=== PATIENT | male | born 1940 | race Caucasian/White ===

== ENCOUNTER 2016-07-24 13:23 | Day surgery (SDC) | payer MEDICARE, OTHER ==
[~2016-07-24] VITALS: Ht 180.3 cm; Wt 104.0 kg
[~2016-07-24 13:23] MED LIST: ALPH50CA PO; AMLO10TA3 PO; ASPI-973 PO; ATEN50TA PO; BUDE8.435 NS; CHOL200025 PO; INSU100I13 SUBQ; INSU200I SQ; IRBE300T42 PO; LEVO50TA6 PO; METF500T4 PO; MULT-1018 PO; OLP.1OP5 AFFECT_EYE; PANT40TA3 PO; ROSU5TAB PO; Sodium Biphos-Phos 133 mL Enema RECTAL PRN; Sodium Chloride LOK Flush 10 mL Syringe IV PRN; TERA5CAP6 PO; VIT1TABL83 PO; fentaNYL-PF 50 mCg/mL 2 mL Inj IVPUSH PRN
[2016-07-24 13:48] VITALS: BP 136/75; PULSE 62; RESP 16; O2SAT 98
[2016-07-24] MEDS: 0.9% Sodium Chloride 1,000 ML IV SCH ×2 (14:01→14:09)
[2016-07-24 15:30] VITALS: BP 139/76; PULSE 68; RESP 14; O2SAT 96
[2016-07-24 15:40] VITALS: BP 127/66; PULSE 68; RESP 14; O2SAT 96
[2016-07-24 15:50] VITALS: BP 119/65; PULSE 65; RESP 16; O2SAT 96
[2016-07-24 16:00] VITALS: BP 145/71; PULSE 57; RESP 14; O2SAT 95
--- NOTE | 2016-07-24 16:42 | ENDO ---
[address] [address] ENDOSCOPY PROCEDURE PATIENT: MARIN JOHNSON : 1940 MR#: [id number] ADMIT: 07/24/2016 JOB ID: [id number] DATE OF SERVICE: 07/24/2016 PREPROCEDURE DIAGNOSIS: Personal history of colon polyps, descending colon submucosal mass. PROCEDURE: Colonoscopy with biopsies. ENDOSCOPIST: Bharat Hernandez MD MEDICATIONS: Versed 4 mg, fentanyl 75 mcg in incremental doses. INDICATIONS: The patient is a 75-year-old man who underwent colonoscopy in November [address] Hollis, and during the procedure he had a total of nine polyps removed, all of which were tubular adenomas. At 45 cm from the anal verge, he also had suggestion of a submucosal colon mass. Biopsies were obtained which showed a scar associated with prior mucosal injury, but there was no mucosal abnormality. A CT scan of the abdomen and pelvis was then obtained which did not describe any abnormality, but upon my review I felt that I could see a fat density lesion corresponding to the area of interest, most likely consistent with a submucosal lipoma. He had no complaints of obstructive symptoms or blood in the stool. After discussion of the risks and benefits, he agreed to proceed with repeat colonoscopy because of the number of polyps during the prior procedure as well as to reevaluate the submucosal abnormality. FINDINGS: There was a single 2 mm cecal polyp which was removed with cold forceps. No other polyps were seen. The area of prior tattoo with submucosal mass was redemonstrated again and photographed in multiple positions. The mucosa was completely normal over the area. I elected not to take another biopsy. The remainder of the colonoscopy was normal. DESCRIPTION OF PROCEDURE: Procedural sedation was achieved. After digital rectal exam, the PC H 180 AL colonoscope was inserted and passed under visualization until the ileocecal valve and appendiceal orifice were visualized and photo documented. The terminal ileum was intubated for approximately 5 cm, which was normal. In the cecum, just opposite the ileocecal valve, there was a 2 mm rounded polyp which was removed with cold forceps and sent for permanent pathology. The scope was then withdrawn and carefully retroflexed in the rectum. At 50 cm from the anal verge, the prior tattooed area was visualized. The tattoo ink was visible both proximal and distal to the lesion of prior interest. Again, the mucosa was completely smooth but there was a submucosal bulging into the lumen which was very soft and nonobstructive. I elected not to biopsy that area. The remainder of the procedure was normal. The scope was withdrawn and the procedure terminated. He tolerated the entire procedure well. 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 The patient wishes to undergo observation as opposed to resection. For colon screening, I recommend repeat colonoscopy in three years.
--- NOTE | 2016-07-26 13:53 | PATH ---
SURGICAL PATHOLOGY Attending Physician:Eva Sellers CASE STATUS: Signed Out PATIENT NAME: MARIN JOHNSON JR PID: [id number] : 1940 DATE COLLECTED:07/24/2016 00:00 SPECIMEN: Colon, Polyp CLINICAL HISTORY: 1). CECAL POLYP FINAL DIAGNOSIS: 1.CECAL POLYP: TUBULAR ADENOMA. ICD10 D12.0 GROSS DESCRIPTION: Received in formalin, labeled with the patient' s name and "cecal polyp", is one fragment of moffett, soft tissue measuring 0.2 x 0.1 x 0.1 cm. The fragment is totally submitted in one cassette. ([id number]) MICRO DESCRIPTION: See diagnosis. ICD-9 CODES: CPT CODES: 1: 95453 Electronically Signed Out Blaine Mejia MD [facility] Pathology [facility] [address], [place] [address] Technical component performed at [facility], [facility] [address], [place], [address]
== END 2016-07-24 23:59 | disposition home or self-care (01) ==
LOC: END 13:23
PROVIDERS: ATTEND Student in an Organized Health Care Education/Training Program
DX: Z12.11 Encounter for screening for malignant neoplasm of colon (principal); D12.0 Benign neoplasm of cecum; Z86.010 Personal history of colon polyps; I10 Essential (primary) hypertension; E78.5 Hyperlipidemia, unspecified; E03.9 Hypothyroidism, unspecified; K21.9 Gastro-esophageal reflux disease without esophagitis; I34.8 Other nonrheumatic mitral valve disorders; G47.30 Sleep apnea, unspecified; R00.1 Bradycardia, unspecified; G47.00 Insomnia, unspecified; E11.42 Type 2 diabetes mellitus with diabetic polyneuropathy; I69.359 Hemiplegia and hemiparesis following cerebral infarction affecting unspecified side; Z79.4 Long term (current) use of insulin; Z79.84 Long term (current) use of oral hypoglycemic drugs
CPT/HCPCS: 45380; 99153; G0500; J7030

== ENCOUNTER 2016-08-12 04:02 | Emergency (ER) | payer MEDICARE, OTHER ==
[~2016-08-12] VITALS: Ht 180.3 cm; Wt 103.6 kg
[~2016-08-12 04:02] MED LIST changes: -METF500T4 PO; -ROSU5TAB PO; -Sodium Biphos-Phos 133 mL Enema RECTAL PRN; -Sodium Chloride LOK Flush 10 mL Syringe IV PRN; -fentaNYL-PF 50 mCg/mL 2 mL Inj IVPUSH PRN
[2016-08-12 04:09] VITALS: BP 144/69; PULSE 65; RESP 18; O2SAT 97
--- NOTE | 2016-08-12 04:37 | ED.REPORT ---
HPI-Extremity Problem Lower Date of Service Aug 12, 2016 ED Provider: Mikhail Wilhelm MD 76 y/o male on Aspirin with a hx of HTN and DM presents to the ED complaining of left 4th toe laceration yesterday. The pt states he hit his foot on a metal door stop. He denies pain in left foot. The pt is concerned the toe may be broken and that the bleeding is not stopping. Nursing Notes Stated Complaint: TOE PAIN Chief Complaint: Extremity Trauma Nursing Notes Reviewed: Yes Allergies: Coded Allergies: Iodinated Contrast- Oral and IV Dye (Verified Allergy, Mild, Dizziness, elevated BP, 08/12/16) Pt reports being dizzy and having HBP after oral contrast. Was given benadryl and sent to ER. Unknown facility. kld metformin (Verified Allergy, Mild, 08/12/16) codeine (Verified Adverse Reaction, Severe, FINGERS NUMB,BLISTERS, 08/12/16) adhesive tape (Verified Adverse Reaction, Unknown, UNKNOWN, 08/12/16) ezetimibe (Verified Adverse Reaction, Unknown, 07/24/16) MUSCLE ACHES Scheduled Alpha Lipoic Acid (Alpha Lipoic Acid) 50 Mg Capsule 60 MG PO DAILY Amlodipine (Amlodipine) 10 Mg Tablet 10 MG PO DAILY Aspirin (Aspirin) 81 Mg Tablet 81 MG PO DAILY Atenolol (Atenolol) 50 Mg Tablet 50 MG PO DAILY Budesonide (Budesonide) 32 Mcg/Actuation [place].pump 8.43 ML NS DAILY Cholecalciferol (Vitamin D3) (Vitamin D3) 2,000 Unit Tablet 2,000 UNIT PO DAILY Insulin Glargine (Lantus U100 Solostar Insulin Pen) 100 Unit/1 Ml Insuln.pen 35 UNIT SUBQ DAILY Insulin Lispro (Humalog Kwikpen) 200 Unit/Ml (3 Ml) Insuln.pen 5 UNIT SQ TIDAC Irbesartan (Avapro) 300 Mg Tablet 300 MG PO DAILY Levothyroxine (Levothyroxine) 50 Mcg Tablet 50 MCG PO DAILY Multivitamin (Multi Vitamin Daily) 1 Each Tablet 1 EACH PO DAILY Olopatadine (Patanol) 5 Ml Soln 1 DROP AFFECT_EYE BID Pantoprazole DR (Pantoprazole DR) 40 Mg Tablet.dr 40 MG PO BID Terazosin (Terazosin) 5 Mg Capsule 5 MG PO HS Vit B Comp/C/FA/Iron/Vit E (Vitamin B Complex Tablet) 1 Each Tablet 1 EACH PO DAILY General Time Seen by MD: 04:29 Chief Complaint Toe injury left 4 Hx Obtained From: Patient Arrived By: Walk-in Onset Occurred: Yesterday Symptom Duration: Since onset Location: : Toe left 4 Severity: Current: No pain currently Severity: Maximum: Mild Recent Healthcare: No recent doctor visit Similar Sx Previous: No Past Medical History Past Medical History AAA GERD SKIN CANCER Reports: Diabetes mellitus, Hypertension Past Surgical History CARPEL TUNNEL RIGHT WRIST Smoking History Former Smoker Ambulatory Status Independent Review of Systems Reports: left 4th toe laceration Musculoskeletal: Denies: Extremity pain (left foot) Complete sys rev & neg: except as marked. Physical Exam Initial Vital Signs Vital Signs (First) Date Time Temp Pulse Resp B/P Pulse Ox O2 Delivery O2 Flow Rate FiO2 08/12/16 04:09 36.8 65 18 144/69 97 Room Air Initial VS: Reviewed, Vital signs normal Head / Eyes: Atraumatic, Normocephalic Neck: Supple, Non-tender, Full range of motion Respiratory: No respiratory distress Cardiovascular: Regular rate & rhythm, Intact distal pulses Upper Extremities: Vascular intact, Neuro intact, No swelling, No tenderness Skin: Warm, Dry, No cyanosis Neurologic: Alert, Oriented, Nonfocal Lower Extremity / Pelvis / MS: Atraumatic, Full range of motion, No swelling, No deformity, Neurologic intact, Vascular intact Ankle / Foot: Atraumatic, Full range of motion, No deformity, Neurologic intact , Vascular intact Left Great Toe: Positive: Swelling present... (Mild), Negative: Deformity present, Tenderness present... Skin avulsion on top of 4th toe. General/Constitutional: Awake, Alert, No acute distress, Cooperative Re-Eval/Medical Decision Med Decision/Clinical Course 76-year-old male with a small skin avulsion/abrasion on his toe which would not stop bleeding. LET was applied and the bleeding stopped. There is no palpable bony tenderness or deformity so x-ray was not done. Source of Hx: Old records Re-Evaluation/Progress : Time of Eval: 05:48 Re-Evaluation/Progress Note: Rechecked pt. Discussed diagnosis and plan to discharge. Pt understands and agrees with the plan. F/U instructions and RTER warning given. All questions addressed. Counseled Regarding: Diagnosis, Need for follow-up, When/why to return to ED Discharge & Departure Impression: Primary Impression: Avulsion of skin of toe Encounter type: initial encounter Qualified Code: S91.109A - Unspecified open wound of unspecified toe(s) without damage to nail, initial encounter Disposition: Home Discharge Condition All VS Reviewed: Yes Condition: Stable Patient Instructions: Abrasion (ED) Additional Instructions: Daily dressing change with antibiotic ointment and Band-Aid. You may apply the vasoconstrictor once or twice more if needed. Referrals: Maritza Cornelius (PCP) Scribe Attestation Portions of this note were transcribed by Jeremie Robles. I, , personally performed the history, physical exam and medical decision- making;I reviewed and confirmed the accuracy of the information in the transcribed note. Signed by Remy Azul. 08/12/16 06:06 copies to: Maritza Cornelius Howard L MD Aug 12, 2016 04:37 Jeremie Robles Aug 12, 2016 04:51
[2016-08-12] MEDS ORDERED: Lidocaine-Epi-Tetracaine Solution 3 mL Syringe TOPICAL ONE (04:50)
[2016-08-13] MEDS ORDERED: CRB200T PO (10:44)
== END 2016-08-12 06:05 | disposition home or self-care (01) ==
LOC: SED 04:02
DX: S91.105A Unspecified open wound of left lesser toe(s) without damage to nail, initial encounter (principal); W22.8XXA Striking against or struck by other objects, initial encounter; Y93.89 Activity, other specified; Y92.89 Other specified places as the place of occurrence of the external cause; Y99.8 Other external cause status; I10 Essential (primary) hypertension; E11.9 Type 2 diabetes mellitus without complications; K21.9 Gastro-esophageal reflux disease without esophagitis; C44.90 Unspecified malignant neoplasm of skin, unspecified; Z79.82 Long term (current) use of aspirin; Z79.4 Long term (current) use of insulin; Z87.891 Personal history of nicotine dependence; Z88.5 Allergy status to narcotic agent; Z88.8 Allergy status to other drugs, medicaments and biological substances; Z91.048 Other nonmedicinal substance allergy status; Z91.041 Radiographic dye allergy status
CPT/HCPCS: 99283; G0463

== ENCOUNTER 2016-08-13 03:42 | Emergency (ER) | payer MEDICARE, OTHER ==
[~2016-08-13] VITALS: Ht 180.3 cm; Wt 101.8 kg
[2016-08-13 03:49] VITALS: BP 157/64; PULSE 68; RESP 18; O2SAT 97
--- NOTE | 2016-08-13 04:16 | ED.REPORT ---
HPI-General Illness Date of Service Aug 13, 2016 ED Provider: Mikhail Wilhelm MD Pt is a 76 year old male with a history of HTN and DM who presents to the ED complaining of neck pain. He c/o associated headache, right-sided ear pain, right-sided head pain, and difficulty sleeping secondary to the pain. He denies any other symptoms. Nursing Notes Stated Complaint: NECK PAIN Chief Complaint: General Complaint Nursing Notes Reviewed: Yes Allergies: Coded Allergies: Iodinated Contrast- Oral and IV Dye (Verified Allergy, Mild, Dizziness, elevated BP, 08/12/16) Pt reports being dizzy and having HBP after oral contrast. Was given benadryl and sent to ER. Unknown facility. kld metformin (Verified Allergy, Mild, 08/12/16) codeine (Verified Adverse Reaction, Severe, FINGERS NUMB,BLISTERS, 08/12/16) adhesive tape (Verified Adverse Reaction, Unknown, UNKNOWN, 08/12/16) ezetimibe (Verified Adverse Reaction, Unknown, 07/24/16) MUSCLE ACHES Uncoded Allergies: STATIN DRUGS (Allergy, Unknown, 08/13/16) Scheduled Alpha Lipoic Acid (Alpha Lipoic Acid) 50 Mg Capsule 60 MG PO DAILY Amlodipine (Amlodipine) 10 Mg Tablet 10 MG PO DAILY Aspirin (Aspirin) 81 Mg Tablet 81 MG PO DAILY Atenolol (Atenolol) 50 Mg Tablet 50 MG PO DAILY Cholecalciferol (Vitamin D3) (Vitamin D3) 2,000 Unit Tablet 2,000 UNIT PO DAILY Insulin Glargine (Lantus U100 Solostar Insulin Pen) 100 Unit/1 Ml Insuln.pen 35 UNIT SUBQ DAILY Insulin Lispro (Humalog Kwikpen) 200 Unit/Ml (3 Ml) Insuln.pen 5 UNIT SQ TIDAC Irbesartan (Avapro) 300 Mg Tablet 300 MG PO DAILY Levothyroxine (Levothyroxine) 50 Mcg Tablet 50 MCG PO DAILY Multivitamin (Multi Vitamin Daily) 1 Each Tablet 1 EACH PO DAILY Olopatadine (Patanol) 5 Ml Soln 1 DROP AFFECT_EYE BID Pantoprazole (Pantoprazole DR) 40 Mg Tablet.dr 40 MG PO BID Terazosin (Terazosin) 5 Mg Capsule 5 MG PO HS Vit B Comp/C/FA/Iron/Vit E (Vitamin B Complex Tablet) 1 Each Tablet 1 EACH PO DAILY Scheduled PRN Carbamazepine (Carbamazepine) 200 Mg Tablet 200 MG PO BID PRN PRN For Pain General Time Seen by MD: 03:50 Chief Complaint Other (Neck pain) Hx Obtained From: Patient Arrived By: Walk-in Sudden in Onset?: Yes Onset Occurred: 5 - 8 hours ago Symptom Duration: Since onset Location: : Neck Quality: Painful Severity: Current: Moderate Severity: Maximum: Moderate Recent Healthcare: Recent doctor visit Similar Sx Previous: No Past Medical History Past Medical History AAA GERD SKIN CANCER Right rotator cuff tear Great toes fused Reports: Diabetes mellitus, Hypertension Past Surgical History CARPEL TUNNEL - RIGHT WRIST Left shoulder Prostate Smoking History Former Smoker (1964) Social History Alcohol Use: Denies alcohol use Drug Use: Denies drug use Ambulatory Status Independent Review of Systems + Head pain + Difficulty sleeping Full Review of Systems Ears / Nose / Throat: Reports: Earache right Musculoskeletal: Reports: Neck pain Neurologic: Reports: Headache Complete sys rev & neg: except as marked. Physical Exam Vital Signs Vital Signs Date Time Temp Pulse Resp B/P Pulse Ox O2 Delivery O2 Flow Rate FiO2 08/13/16 11:04 36.1 65 151/80 97 Room Air 08/13/16 08:00 65 16 148/56 97 Room Air 08/13/16 03:49 36.6 68 18 157/64 97 Room Air Initial VS: Reviewed Head / Eyes: Atraumatic, Normocephalic Respiratory: Breath sounds normal, Clear to auscultation, No respiratory distress Cardiovascular: Regular rate & rhythm, Heart sounds normal, Intact distal pulses Abdomen / GI: Soft, Non-tender Extremities: Vascular intact, Neuro intact Skin: Warm, Dry, No cyanosis Neurologic: Alert, Oriented, Nonfocal Psychiatric: Mood/affect normal, Behavior normal General/Constitutional: Awake, Alert, Cooperative ENT: Tympanic membs NL Normal nontender temporal arteries. Non-tender mastoid bilaterally. Neck: Supple Area of tenderness just posterior to the right sternocleidomastoid muscle. Trigger point right at the based of the skull to the right of the midline. Procedures Occipital nerve injection: 5 cc of .5% marking injected with pt's consent and sterile conditions. Re-Eval/Medical Decision Med Decision/Clinical Course Dr. Wilhelm: This patient's workup was initiated by me. He was given carbamazepine and an MRI was ordered. His care is being turned over at change of shift to Dr. Alex Martinez. Addendum by Dr. Martinez: This is a 76-year-old male with an intermittent shooting pain in the right side of the neck was turned over to me at change of shift. I personally interviewed and examined the patient. He does describe this very shocklike sensation on the right side. While in the face and the classic cardiac panel distribution, and is more the neck. I agree that he does not have any temporal artery tenderness. He has no neurologic exam findings of numbness or weakness. The shocklike discomfort he received a dose of carbamazepine, which she reports may have helped but is not definite. He is never any pending an MRI of the neck. The MRI was negative. On reexamination he feels somewhat better. He is not currently having any discomfort. He clinically appears well, is neurologic exam is normal. Not finding evidence of a clear dangerous etiology. A definitive cause has not been established. Routine return precautions reviewed. Patient's discharged in good condition. He is willing to continue a trial of carbamazepine which I think is reasonable, up to 200 mg twice a day. And he has follow-up planned with his providers. Source of Hx: Old records Time of Eval: 04:25 Re-Evaluation/Progress Note: Pt rechecked. Informed pt of plan for treatment with an occipital nerve injection. Pt understands and agrees with plan for treatment. All questions were answered. Time of Eval: 05:07 Patient Status: Condition unchanged Re-Evaluation/Progress Note: Pt rechecked. Pt reports that he has not experienced improvement. All questioned answered. Time of Eval: 05:10 Re-Evaluation/Progress Note: Pt rechecked. Informed pt of plan for treatment. Pt understands and agrees with plan for treatment. All questions were addressed. Differential Diagnosis: Negative: Abdominal pain, Acute coronary syndrome, Diabetes mellitus, G-tube repair/replacement, Influenza, Laceration, Malingering , Pneumonia Counseled Regarding: Diagnosis, Need for follow-up, When/why to return to ED Discharge & Departure Primary Impression: Neck pain Discharge Condition All VS Reviewed: Yes Condition: Stable Referrals: Maritza Cornelius (PCP) Scribe Attestation Portions of this note were transcribed by Franci Tuttle. I, Dr. Wilhelm personally performed the history, physical exam and medical decision-making; I reviewed and confirmed the accuracy of the information in the transcribed note. Signed by: Remy Crespo, 08/13/16 and 05:50. copies to: Maritza Cornelius Howard L MD Aug 13, 2016 04:15 Franci Seo Aug 13, 2016 04:22 Alex Martinez MD Aug 13, 2016 11:46
[2016-08-13] MEDS ORDERED: Bupivacaine-MPF 0.5% 30 mL Inj ONE (04:21)
[2016-08-13] MEDS ORDERED: carBAMazepine 200 mg Tablet PO ONE (05:10)
[2016-08-13 08:00] VITALS: BP 148/56; PULSE 65; RESP 16; O2SAT 97
--- NOTE | 2016-08-13 10:04 | DRSVH ---
PROCEDURE: MRI CERVICAL SPINE WITHOUT CONTRAST ([id number]) INDICATIONS: C1 distribution severe pain TECHNIQUE: Noncontrast sagittal T1 spin echo and T2 fast spin echo, sagittal STIR, foraminal oblique sagittal T2 fast spin echo, and axial gradient echo or T2 fast spin echo through the cervical spine. COMPARISON: [facility], MR, MR CERVICAL SPINE WO CON, 05/21/2016 and 02/22/2015. FINDINGS: Image quality: Excellent. Alignment and Curvature: There is normal bony alignment. Bone Marrow: Marrow demonstrates normal overall signal. Spinal Cord: Visualized spinal cord has normal size and signal. No cerebellar tonsillar herniation. Paraspinous Soft Tissues: No paravertebral masses. Prevertebral soft tissues are normal in thicknes s. C2-C3: Normal appearance. C3-C4: Mild disc bulge minimally deforms the left paracentral spinal cord. There is no spinal cord ed anna. Uncovertebral joint hypertrophy. Minimal right neural foraminal narrowing. The left neural iris en and central spinal canal are patent. C4-C5: Minimal/mild posterior disc bulge. Uncovertebral joint hypertrophy. Minimal/mild bilateral hal ral foraminal narrowing. Patent central spinal canal.. C5-C6: Minimal/mild posterior disc bulge. Uncovertebral joint hypertrophy. Minimal/mild bilateral ne ural foraminal narrowing. Patent central spinal canal. C6-C7: Mild posterior disc bulge. Uncovertebral joint hypertrophy. Minimal/mild bilateral neural fora rodolfo narrowing. Patent central spinal canal. C7-T1: Normal appearance. IMPRESSION: 1. No significant change since the previous study. Mild degenerative change is less than expected for the patient's age causing multilevel minimal/mild neural foraminal narrowing. The central spinal can al is patent. 2. No radiographic etiology for the patient's increasing pain. Dictated by: Riki Carlin M.D. on 08/13/2016 at 9:36 Approved by: Riki Carlin M.D. on 08/13/2016 at 9:56
[2016-08-13] MEDS ORDERED: CRB200T PO (10:44)
[2016-08-13 11:04] VITALS: BP 151/80; PULSE 65; O2SAT 97
== END 2016-08-13 11:02 | disposition home or self-care (01) ==
LOC: SED 03:42
DX: M54.2 Cervicalgia (principal); R51 Headache; H92.01 Otalgia, right ear; I10 Essential (primary) hypertension; E11.9 Type 2 diabetes mellitus without complications; K21.9 Gastro-esophageal reflux disease without esophagitis; Z79.82 Long term (current) use of aspirin; Z79.84 Long term (current) use of oral hypoglycemic drugs; Z87.891 Personal history of nicotine dependence; Z88.5 Allergy status to narcotic agent; Z88.8 Allergy status to other drugs, medicaments and biological substances; Z91.041 Radiographic dye allergy status; Z91.048 Other nonmedicinal substance allergy status; Z79.4 Long term (current) use of insulin

== ENCOUNTER 2016-09-14 17:20 | Emergency (ER) | payer MEDICARE, OTHER ==
[~2016-09-14] VITALS: Ht 180.3 cm; Wt 103.6 kg
[~2016-09-14 17:20] MED LIST changes: -BUDE8.435 NS; +CRB200T PO
[2016-09-14 17:40] VITALS: BP 153/70; PULSE 63; RESP 18; O2SAT 97
--- NOTE | 2016-09-14 18:40 | DRSVH ---
PROCEDURE: X-RAY LEFT FOOT COMPLETE, MINIMUM THREE VIEWS ([id number]) INDICATIONS: Dropped object on foot TECHNIQUE: 3 views of the foot were acquired. COMPARISON: None. FINDINGS: Bones: No fractures or dislocations. No suspicious bony lesions. Soft tissues: No tibiotalar joint effusion. Achilles tendon appears normal. 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 Dictated by: Bandar Ramos M.D. on 09/14/2016 at 18:37 Approved by: Bandar Ramos M.D. on 09/14/2016 at 18:38
--- NOTE | 2016-09-14 19:31 | ED.REPORT ---
HPI-Extremity Problem Lower Date of Service Sep 14, 2016 ED Provider: Damaso Segura PA-C Vahid is a 68-year-old male with a history of type II diabetes, hypertension presented with a chief complaint of left foot pain. It began when he dropped a heavy plastic showerhead on his foot. He is able to walk on the limb. Nursing Notes Stated Complaint: LEFT FOOT INJURY Chief Complaint: Extremity Trauma Nursing Notes Reviewed: Yes Allergies: Coded Allergies: Iodinated Contrast- Oral and IV Dye (Verified Allergy, Mild, Dizziness, elevated BP, 09/14/16) Pt reports being dizzy and having HBP after oral contrast. Was given benadryl and sent to ER. Unknown facility. kld metformin (Verified Allergy, Mild, 09/14/16) codeine (Verified Adverse Reaction, Severe, FINGERS NUMB,BLISTERS, 09/14/16) adhesive tape (Verified Adverse Reaction, Unknown, UNKNOWN, 09/14/16) ezetimibe (Verified Adverse Reaction, Unknown, 09/14/16) MUSCLE ACHES Uncoded Allergies: STATIN DRUGS (Allergy, Unknown, 08/13/16) Scheduled Alpha Lipoic Acid (Alpha Lipoic Acid) 50 Mg Capsule 60 MG PO DAILY Amlodipine (Amlodipine) 10 Mg Tablet 10 MG PO DAILY Aspirin (Aspirin) 81 Mg Tablet 81 MG PO DAILY Atenolol (Atenolol) 50 Mg Tablet 50 MG PO DAILY Cholecalciferol (Vitamin D3) (Vitamin D3) 2,000 Unit Tablet 2,000 UNIT PO DAILY Insulin Glargine (Lantus U100 Solostar Insulin Pen) 100 Unit/1 Ml Insuln.pen 35 UNIT SUBQ DAILY Insulin Lispro (Humalog Kwikpen) 200 Unit/Ml (3 Ml) Insuln.pen 5 UNIT SQ TIDAC Irbesartan (Avapro) 300 Mg Tablet 300 MG PO DAILY Levothyroxine (Levothyroxine) 50 Mcg Tablet 50 MCG PO DAILY Multivitamin (Multi Vitamin Daily) 1 Each Tablet 1 EACH PO DAILY Olopatadine (Patanol) 5 Ml Soln 1 DROP AFFECT_EYE BID Pantoprazole DR (Pantoprazole DR) 40 Mg Tablet.dr 40 MG PO BID Terazosin (Terazosin) 5 Mg Capsule 5 MG PO HS Vit B Comp/C/FA/Iron/Vit E (Vitamin B Complex Tablet) 1 Each Tablet 1 EACH PO DAILY Scheduled PRN Carbamazepine (Carbamazepine) 200 Mg Tablet 200 MG PO BID PRN PRN For Pain General Time Seen by MD: 19:23 Chief Complaint Foot injury left Past Medical History Past Medical History AAA GERD SKIN CANCER Right rotator cuff tear Great toes fused Reports: Diabetes mellitus, Hypertension Past Surgical History CARPEL TUNNEL - RIGHT WRIST Left shoulder Prostate Smoking History Former Smoker Social History Alcohol Use: Denies alcohol use Drug Use: Denies drug use Ambulatory Status Independent Review of Systems Review of Systems Note: Negative unless stated otherwise in history of present illness Physical Exam General: Well appearing, well developed, well nourished, no acute distress. Left foot: Normal to inspection, mildly tender over the fourth and fifth MTP joints, more prominently on the dorsal surface on the plantar surface. Range of motion and strength intact in MTP joints, ankle. 1+ pitting edema is noted at the ankle. DP pulse 2+, PT pulses appreciated. Sensation and brisk capillary refill are intact in distal phalanges. Head: Atraumatic, normocephalic. Eyes: No scleral icterus or injection. No discharge. Vision grossly intact. ENT: Voice clear, hearing grossly intact. Respiratory: No respiratory distress, no increased work of breathing. Speaks in complete sentences. Skin: Warm and dry. Neurological: Grossly nonfocal. Normal gait Psychological: alert and oriented. Speech appropriate, linear and logical. Behavior appropriate. 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 Interpretation / Wet Read by: Interpret - Radiologist Re-Eval/Medical Decision Med Decision/Clinical Course 76-year-old male presents after dropping a heavy showerhead on his left foot, complaining of pain. X-rays are normal, physical examination reveals mild tenderness over the fourth and fifth MTP joints, otherwise benign with normal vital signs. I believe this is a contusion and reassured against fracture, dislocation. Advise [id number] analgesia, rest, ice, elevation, primary care follow-up and provide emergent return precautions. Stable and safe to be discharged. Patient verbalizes understanding of and consented to the plan. Discharge & Departure Impression: Primary Impression: Contusion of left foot Encounter type: initial encounter Qualified Code: S90.32XA - Contusion of left foot, initial encounter Additional Impression: Elevated blood pressure reading Disposition: Home Discharge Condition All VS Reviewed: Yes Condition: Stable Patient Instructions: Contusions in Adults (ED) Additional Instructions: Evaluation in emergency department for left foot pain includes interview, physical examination and x-rays all of which are reassuringly not fractured her foot. I believe this is a contusion which should improve steadily over the next several days. Although may be a bit stiff in the morning. I recommended naproxen (Aleve) 500 mg taken every 12 hours for pain. you can add acetaminophen (Tylenol) up to 1000 mg every 6 hours for additional relief. Follow-up with your primary care provider if this is not significantly improved in one week. Return to emergency department for new or worsening symptoms including increasing redness, swelling, pain. Referrals: Maritza Cornleius (PCP) EDSupervising Provider for APC: El Coelho MD copies to: Maritza Cornelius Seth PA-C Sep 14, 2016 19:31
[2016-09-14 19:36] VITALS: BP 152/68; PULSE 66; RESP 18; O2SAT 97
== END 2016-09-14 19:37 | disposition home or self-care (01) ==
LOC: SED 17:20
DX: S90.32XA Contusion of left foot, initial encounter (principal); I10 Essential (primary) hypertension; W20.8XXA Other cause of strike by thrown, projected or falling object, initial encounter; Y93.E1 Activity, personal bathing and showering; Y99.8 Other external cause status; Y92.012 Bathroom of single-family (private) house as the place of occurrence of the external cause; K21.9 Gastro-esophageal reflux disease without esophagitis; E11.9 Type 2 diabetes mellitus without complications; Z87.891 Personal history of nicotine dependence; Z86.73 Personal history of transient ischemic attack (TIA), and cerebral infarction without residual deficits; Z86.79 Personal history of other diseases of the circulatory system; Z79.4 Long term (current) use of insulin; Z79.82 Long term (current) use of aspirin; Z88.5 Allergy status to narcotic agent; Z88.8 Allergy status to other drugs, medicaments and biological substances